=== PATIENT | male | born 1985 | race Caucasian/White ===

== ENCOUNTER 2017-04-06 11:07 | Emergency (ER) | payer MEDICARE ==
[2017-04-06 11:47] VITALS: BP 154/101; PULSE 88; RESP 20; TEMP 98.2; O2SAT 98
[2017-04-06 12:08] LABS: ALBUMIN 3.5 gm/dl (3.4-5.0); CALCIUM 9.2 mg/dl (8.5-10.1); POTASSIUM 4.3 mMol/L (3.5-5.1)
[2017-04-06 12:22] LABS: EOSINOPHILS % (AUTO) 2 % (0-9); HEMATOCRIT 49 % (39-53); MEAN CORPUSCULAR HGB CONC 32.8 gm/dl (32.0-36.0); MEAN CORPUSCULAR VOLUME 83 fL (80-100)
[2017-04-06 12:23] LABS: BASOPHILS % (AUTO) 1 % (0-3)
== END 2017-04-06 13:14 | disposition home or self-care (01) | DRG 373 ==
LOC: ED 11:07
DX: A04.7 Enterocolitis due to Clostridium difficile (principal); G62.89 Other specified polyneuropathies; R73.9 Hyperglycemia, unspecified
CPT/HCPCS: 36415; 80053; 85025; 99282; 99283